=== PATIENT | female | born 1945 | race Caucasian/White ===

== ENCOUNTER 2018-12-31 12:02 | Inpatient (IN) | payer MEDICARE, MEDICAID ==
[~2018-12-31] VITALS: Ht 177.8 cm; Wt 72.8 kg
[2018-12-31] VITALS (7 sets, daily range): BP systolic 84–112; BP diastolic 39–56
--- NOTE | 2018-12-31 12:02 | NUR ---
PATIENT IS DYSARTHRIC, GENERALIZED WEAKNESS RIGHT LOWER EXTREMITY DRIFT, RIGHT UPPER EXTREMITY ATAXIA AND SUDDEN ONSET OF HEADACHE 30 MINUTES PRIOR TO ARRIVAL
--- NOTE | 2018-12-31 12:02 | NUR ---
PT DIRECTLY TO ROOM 11 FOR BEDSIDE TRIAGE.
[2018-12-31 12:31] LABS: GFR 55 ML/MIN (>=60 (CALC)); GFR FOR AFR.AMER. > 60 ML/MIN (>=60 (CALC))
--- NOTE | 2018-12-31 12:45 | NUR ---
PATIENT RETURNED FROM CT AND IN FROM OF [facility]. PATIENT TO RETURN TO CT FOR CTA HEN REEVALUATE. NO TPA AT THIS TIME
[2018-12-31 12:51] LABS: HEMATOCRIT 44.6 % (37.0-47.0); HEMOGLOBIN 14.4 g/dl (12.0-16.0); IMMATURE GRANULOCYTES 0.3 % (0.0-5.0); MEAN CELL VOLUME 93.1 fL CALC (80.0-100.0); MEAN CORPUSCULAR HGB 30.1 pG CALC (26.0-32.0); MEAN CORPUSCULAR HGB CONC 32.3 g/L CALC (32.0-36.0); NEUT# 5.2 thou/uL (2.00-7.15); RED BLOOD COUNT 4.79 mill/uL (4.20-5.60); RED CELL DISTRI WIDTH 12.8 % (11.5-15.5)
[2018-12-31 13:00] LABS: ALBUMIN 3.9 g/dL (3.2-5.0); ALKALINE PHOSPHATASE 116 u/l (38-126); ANION GAP 12 (6-22 (CALC)); BILIRUBIN, TOTAL 0.4 mg/dL (0.0-1.4); BUN 19 mg/dL (8-23); BUN/CREATININE RATIO 19 (12-20 (CALC)); CARBON DIOXIDE 25 mmol/l (22-30); CHLORIDE 107 mmol/l (95-108); GFR 55 ML/MIN (>=60 (CALC)); GFR FOR AFR.AMER. > 60 ML/MIN (>=60 (CALC)); POTASSIUM 4.1 mmol/l (3.5-5.1); SGOT/AST 18 u/l (9-36); SODIUM 140 mmol/l (137-146)
[2018-12-31 13:04] LABS: PROTHROMBIN TIME 10.2 SECONDS (9.0-12.5)
--- NOTE | 2018-12-31 13:45 | NUR ---
NARCAN GIVEN PATIENT PER MD ORDER PATIENT MORE ALERT AND ORIENTED STROKE ALERT CANCELLED PER NEUROLOGIST AT [facility]
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
[2018-12-31 14:48] LABS: URINE BILIRUBIN - DIPSTICK NEGATIVE (NEGATIVE); URINE BLOOD DIPSTICK NEGATIVE (NEGATIVE); URINE COLOR YELLOW; URINE GLUCOSE - DIPSTICK NEGATIVE (NEGATIVE); URINE KETONE NEGATIVE (NEGATIVE); URINE LEUK ESTERASE NEGATIVE (NEGATIVE); URINE NITRITE - DIPSTICK NEGATIVE (Negative); URINE PH 5.5 (4.5-8.0); URINE PROTEIN - DIPSTICK NEGATIVE (NEG-TRACE); URINE SPECIFIC GRAVITY >=1.030; URINE UROBILINOGEN - DIPSTICK 0.2 E.U./dL (0.2)
[2018-12-31 15:00] LABS: BARBITURATES NEGATIVE (NEGATIVE); COCAINE NEGATIVE (NEGATIVE); METHADONE NEGATIVE (NEGATIVE); OXCYCODONE POSITIVE (NEGATIVE); TETRAHYDROCANNABIONOL POSITIVE (NEGATIVE); TRICYLIC ANTIDEPRESSANTS POSITIVE (NEGATIVE)
--- NOTE | 2018-12-31 15:10 | NUR ---
PATIENT RESTING VOICES NO CONCERNS AT THIS TIME. PPATIENT HAS INTERMITTENT CRYING AND STATES SHE MISSES HER AND DOESNT KNOW HOW SHE WILL SURVIVE WITHOUT HIM
--- NOTE | 2018-12-31 15:20 | NUR ---
REPORT CALLED TO ICU
--- NOTE | 2018-12-31 15:53 | NUR ---
UNABLE TO CONFIRM PATIENT MEDICATIONS CONTINUAL CHANGES IN PATIENT STATEMENTS ABOUT MEDICATION ADMINSTRATION AND DOSAGE PHARMACY CONSULT PLACED
--- NOTE | 2018-12-31 16:11 | NUR ---
PATIENT TRANSPORTED TO ICU
--- NOTE | 2018-12-31 16:30 | NUR ---
PT ADMITTED TO ICU ROOM7 FROM ED, REPORT RECIEVED FROM CLAUDETTE ONEILL AT BEDSIDE. PT IS KAMAR JIM, SITTER AT BEDSIDE. PT A&OX3, ABLE TO MAKE NEEDS KNOWN, SPEECH IS SLURRED AT TIME, PT DROWSY. PT TRANSFERRED SELF FROM STRETCHER TO BED, HR- 78, B/P 90/51, R- 24, SA02@98% RA. T-96.9. ASSESSMENT COMPLETED, PT ACCLAIMATED TO ROOM, CALL LIGHT AND UNIT. PT AWARE OF KAMAR JIM AND STATED TO CENTER DIRECTOR AND SITTER THE ONLY PERSON ALOUD TO RECIEVE INFORMATION IS PT DAUGHTER NOHELIA NEVILLE ([place]). PT UNABLE TO PROVIDE NUMBER. PT RESTING WITH EYES CLOSED, BED IN LOWEST POSITION, SITTER REMAINS AT BEDSIDE. WILL MONITOR
--- NOTE | 2018-12-31 17:15 | NUR ---
DR. WISE NOTIFIED FOR PT STATUS UPDATE, PT B/P 87/42 AND SA02@88%RA. NEW ORDERS RECIEVED.
--- NOTE | 2018-12-31 19:45 | NUR ---
awakens easily. denies distress. pt states "i want to go home." instructed pt about desouza act. saw boss shows sinus rhythm. #20 lac ns infusing @ 100cchr. refused po fluids. sitter @ bedside.
--- NOTE | 2018-12-31 22:00 | NUR ---
awakens easily. denies need to void.
--- NOTE | 2018-12-31 23:30 | NUR ---
up to bsc. voided well. sitter remains @ bedside.
[2019-01-01] VITALS (13 sets, daily range): BP systolic 100–169; BP diastolic 42–73
--- NOTE | 2019-01-01 02:00 | NUR ---
resting quietly. resps even & unlabored. no apparent distress.
--- NOTE | 2019-01-01 04:00 | NUR ---
eyes closed. no distress. engine monitor shows sinus rhythm ivcd. sitter @ bedside.
--- NOTE | 2019-01-01 06:45 | NUR ---
RECIEVED REPORT FROM CARLOS BARKSDALE. ASSUMED PT CARE.
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
--- NOTE | 2019-01-01 09:30 | NUR ---
PT RESTING IN BED WITH EYES CLOSED, PT REFUSED BREAKFAST TRAY, HAD SOME COFFEE. SITTER REMAINS AT BEDSIDE.
--- NOTE | 2019-01-01 11:30 | NUR ---
KORIN SWAN AT BEDSIDE FOR ASSESSMENT AND TO DISCUSS PLAN OF CARE.
--- NOTE | 2019-01-01 12:30 | NUR ---
DR. GAONA AT BEDSIDE FOR ASSESSMENT AND TO DISCUSS PLAN OF CARE.
--- NOTE | 2019-01-01 13:22 | NUR ---
CALLED [facility] FOR PENDING ADMISSION, SPOKE WITH LAURENT. ALL NECESSARY PAPERWORK FAXED TO [phone]. ONCE RECORDS REVIEWED, LAURENT STATED THEY WILL CALL WITH ANSWER TO IF THEY WILL ACCEPT PT.
--- NOTE | 2019-01-01 14:33 | NUR ---
PT RESTING IN BED, DENIES SUICIDALIDEATION AT THIS TIME. SITTER AT BEDSIDE. WILL MONITOR.
--- NOTE | 2019-01-01 15:05 | NUR ---
CALLED [facility] BACK TO CHECK STATUS, SPOKE WITH PACKING ATTENDANT, WAS TOLD THAT LAURENT WAS WITH A PT AND THEY WOULD HAVE HER CALL ME BACK WHEN AVAILABLE.
--- NOTE | 2019-01-01 15:43 | NUR ---
P TAMBUALTED TO THE BATHROOM WITH STAND BY ASSIST. PT HAD LARGE AMOUNT OF URINE.
--- NOTE | 2019-01-01 16:03 | NUR ---
CALLED [facility], SPOKE WITH [facility] ABOUT BED AVAILABILITY. FAXED NECESSARY PAPERWORK.
--- NOTE | 2019-01-01 16:48 | NUR ---
PUSHPA FROM [facility] CALLED BACK, STATED THEY COULD NOT ACCEPT PT AT THIS TIME. LEONARD NOTIFIED AND KORIN SWAN NOTIFIED.
--- NOTE | 2019-01-01 16:50 | NUR ---
NOTIFIED PERCY AT [facility], NEW ORDERS RECIEVED . KORIN SWAN NOTIFIED. WILL MONITOR.
[2019-01-01 17:54] LABS: PROTHROMBIN TIME 10.3 SECONDS (9.0-12.5)
[2019-01-01 17:57] LABS: BILIRUBIN, TOTAL 0.3 mg/dL (0.0-1.4); TOTAL PROTEIN 5.7 g/dL (6.3-8.2)
--- NOTE | 2019-01-01 18:11 | NUR ---
PT RESTING IN BED, OFFERS NO COMPLAINTS, SITTER REMAINS AT BEDSIDE.
--- NOTE | 2019-01-01 19:29 | NUR ---
PT ASSISTED TO RESTROOM AND BACK TO BED, MONITORS REATTACHED. PT IS TEARY AND AGITATED THAT SHE "CAN'T GO HOME." STATING "I JUST WANT TO GO HOME AND THEY WON'T LET ME." PT IS VERY UNSTEADY ON HER FEET ALMOST FALLING IN THE RESTROOM. SITTER ASSISTED TO TOILET AND OFF. PT LOCX3. PT BACK IN BED RESTING TEARY AT THIS TIME.
--- NOTE | 2019-01-01 19:30 | NUR ---
PATIENT IS LYING WITH HOB ABOUT 20 DEGREES, SHE IS CRYING AND REPORTS SHE HAS A HEADACHE SINCE THIS AFTERNOON AND HAS ALREADY BEEN GIVEN TYLENOL, I REPORTED I WILL MEDICATE HER WITH MORE TYLENOL, SHE HAS A COLD WASHCLOTH ON HER FOREHEAD. I ALSO OFFERED HER A COLA TO DRINK SINCE CAFFEINE CAN HELP WITH THE HEADACHE, PATIENT AGREED, PATIENT REPORTED SHE HAS NOT SLEPT, REPORTS HER HAS AND SHE WANTS TO GO HOME AND NOT TO THE FACILITY SHE IS GOING TO BE DISCHARGED TO. I HAVE EXPLAINED TO HER WHY SHE HAS A SITTER AT BEDSIDE AND HER PLAN OF CARE. PATIENT IS ON ROOM AIR. NO SHORTNESS OF BREATH NOTED. AFEBRILE. SINUS RHYTHM ON TELEMETRY. ALERT AND ORIENTED X4. SOFT ABDOMEN ACTIVE BS. RADIAL AND PEDAL PULSES STRONG, NO PEDAL EDEMA. LAC 20 GAUGE IV IS INTACT AND FLUSHES PROPERLY. SITTER AT BEDSIDE. CALL LIGHT WITHIN REACH.
--- NOTE | 2019-01-01 19:32 | NUR ---
PT ASSISTED UP TO RESTROOM, PT VERY UNSTEADY ON HER FEET STUMBLING IN RESTROOM W/NEAR FALL. SITTER ASSISTED PT DOWN TO TOILET/PT UNHARMED AND DID NOT FALL, BUT WOULD HAVE W/OUT SITTER AT SIDE ASSISTING. PT WAS CRYING AND STATING, "I JUST WANT TO GO HOME AND THEY WON'T LET ME." PT BACK TO BED AND MONITOR IN PLACE. PT IS LOCX3 AT THIS TIME. CALM, BUT TEARY IN BED W/EYES CLOSED AT THIS TIME.
--- NOTE | 2019-01-01 20:35 | NUR ---
CALLED AND SPOKE TO SARAN FROM [facility] TO NOTIFY HER OF PATIENT'S LABS ORDERED FOR CLEARANCE FROM [facility], I NOTIFIED HER OF PATIENT'S AST, ALT, SALICYLATE LEVEL, ACETAMINOPHEN LEVEL, QRS INTERVAL AND QTC ON EKG, SARAN REPORTED PATIENT IS MEDICALLY CLEARED FROM HER STANDPOINT TO GO TO FACILITY ASSIGNED.
--- NOTE | 2019-01-01 20:43 | NUR ---
HAVE CALLED TO [facility] TO UPDATE WITH MEDICAL CLEARANCE FROM BOTH [facility] AND DOCTOR STANISLAV. EACH TIME I'AM TRANSFERRED AND PHONE KEEPS RINGING OR IT TAKES ME TO VOICEMAIL. WILL CONTINUE TO CALL.
--- NOTE | 2019-01-01 21:31 | NUR ---
I HAVE SPOKE TO LORETTA FROM [facility] TO NOTIFY PATIENT'S CLEARANCE, LORETTA REPORTS SHE IS GOING TO LOOK AT REFERRALS SENT TO THEM AND I REPORTED TO HER PATIENT'S PAPERWORK HAS ALREADY BEEN FAXED OVER, LORETTA REPORTS SHE WILL LOOK FOR PATIENT'S FAXED INFORMATION AND CALL HER BACK WITHIN 5-10 MINUTES.
--- NOTE | 2019-01-01 21:56 | NUR ---
i have called and spoke to patito and she reports patient cannot be accepted to their facility due to their is no bed available in their geriatric unit despite her being cleared from poison control and doctor. i reported to her that patient is independent, she has last been unsteady gait according to last sitter due to she has a headache other than that patient does everything by herself.
--- NOTE | 2019-01-01 22:00 | NUR ---
i have called [facility] to verify if patient can be accepted, was transferred to intake, male person on phone reported they already have faxed information of patient and was going to have a nurse call me back since there is a medical acuity issue. awaiting call back.
--- NOTE | 2019-01-01 22:34 | NUR ---
RT IN ROOM TO GIVE BREATHING TREATMENT TO PATIENT SINCE SHE WAS COMPLAINING ABOUT SHORTNESS OF BREATH, SHE REPORTS SHE HAS COPD.
--- NOTE | 2019-01-01 22:50 | NUR ---
CONRAD FROM [facility] HAS CALLED ME BACK AND HAS ACCEPTED PATIENT, I HAVE GIVEN SBAR OF PATIENT.
--- NOTE | 2019-01-01 23:00 | NUR ---
PATIENT HAS BEEN NOTIFIED SHE WILL BE TRANSFERRED TO [facility] IN [place], I HAVE EXPLAINED THE REASON WHY SHE IS GALVIN ACTED AND WHY SHE IS BEING TRANSFERRED OVER, PATIENT IS IN DENIAL AND IS UPSET, REPORTS "YA'LL THINK I'M STUPID BUT I'M NOT." SHE IS CHANGING INTO HER CLOTHES. SITTER AT BEDSIDE. NURSE MICHELLE HAS ASKED PATIENT IF SHE WOULD LIKE HER FRIEND SAW AND HER DAUGHTER NOTIFIED. PATIENT REPORTS HER DAUGHTER IS IN [facility] AND SHE WILL NOT COME DOWN HERE FOR THIS.
--- NOTE | 2019-01-01 23:15 | NUR ---
PATIENT IN RESTROOM, SITTER AT SIDE. PATIENT HAS CHANGED INTO HER CLOTHES.
--- NOTE | 2019-01-01 23:23 | NUR ---
PATIENT NOW LAYING BACK IN BED, REFUSES TO APPLY HER TELEMETRY BACK ON I HAVE EXPLAINE TO HER IS IMPORTANT TO KEEP IT ON WHILE SHE IS HERE, PATIENT AGREES TO PUT IT BACK ON AND STATED, "WHATEVER."
--- NOTE | 2019-01-02 00:09 | NUR ---
PATIENT LAYING DOWN, AWAKE AND ALERT. ON ROOM AIR, SATS 97 %. AFEBRILE. NO COMPLAINTS OF PAIN. SITTER AT BEDSIDE. CALL LIGHT WITHIN REACH.
[2019-01-02 00:10] VITALS: BP 169/78
[2019-01-02 01:00] VITALS: BP 174/90
--- NOTE | 2019-01-02 01:38 | NUR ---
POLICE OFFICE HERE TO DESIGN ENGINEERING INTERN PATIENT. ORIGINAL GALVIN ACT FORM AND STOP START FORM GIVEN TO SUPERVISOR CELL EFFICIENCY. NECKLACE GIVEN TO OFFICER WELL. PHONE NUMBER OF SAW WAS GIVEN TO PATIENT PER HER REQUEST. PATIENT TAKEN IN WHEELCHAIR BY SITTER, PATIENT IN STABLE CONDITION, SHE WAS UPSET AND CRYING, PATIENT WAS REASSURED.
== END 2019-01-02 01:38 | DRG 918 ==
LOC: ED 12:02 → ED-I 14:34 → ED 15:09 → ICU 15:10
PROVIDERS: Family Medicine; Internal Medicine; ADMIT Internal Medicine Nephrology; ATTEND Internal Medicine Nephrology
DX: T40.2X2A Poisoning by other opioids, intentional self-harm, initial encounter (principal); T43.012A Poisoning by tricyclic antidepressants, intentional self-harm, initial encounter; I95.2 Hypotension due to drugs; R07.9 Chest pain, unspecified; I10 Essential (primary) hypertension; E78.5 Hyperlipidemia, unspecified; E07.9 Disorder of thyroid, unspecified; J44.9 Chronic obstructive pulmonary disease, unspecified; F17.210 Nicotine dependence, cigarettes, uncomplicated; F32.9 Major depressive disorder, single episode, unspecified; R40.2412 Glasgow coma scale score 13-15, at arrival to emergency department; Z63.4 Disappearance and death of family member; Z86.73 Personal history of transient ischemic attack (TIA), and cerebral infarction without residual deficits
CPT/HCPCS: J1650; J2997